=== PATIENT | female | born 1960 | race Two or more races ===

== ENCOUNTER → 2022-06-30 | Outpatient (CLI) | payer OTHER ==
[2022-06-30 13:21] LABS: Basophils # (auto) 0.1 10 ^3/uL (0-0.2); Basophils % (auto) 1.1 % (0.0-2.0); Eosinophils # (auto) 0.1 10 ^3/uL (0-0.8); Eosinophils % (auto) 2.3 % (0.0-7.0); Hematocrit 40.1 % (36.0-46.0); Hemoglobin 13.3 g/dL (12.2-16.2); Lymphocytes # (auto) 1.7 10 ^3/uL (0.4-5.4); Lymphocytes % (auto) 33.2 % (10.0-50.0); Mean Corpuscular Hemoglobin 30.1 pg (28.0-32.0); Mean Corpuscular Hgb Conc. 33.1 g/dL (32.0-36.0); Monocytes # (auto) 0.3 10 ^3/uL (0-1.3); Monocytes % (auto) 6.2 % (0.0-12.0); Neutrophils # (auto) 2.9 10 ^3/uL (1.6-8.6); Neutrophils % (auto) 57.2 % (37.0-80.0); Nucleated Red Blood Cells % 0.3 %; Red Blood Cells 4.41 10^6/uL (4.0-5.20); Red Cell Distribution Width 14.1 % (11.8-14.3); White Blood Cell 5.1 10^3/uL (4.4-10.8)
[2022-06-30 13:37] LABS: Urine Bacteria FEW /hpf (None Seen); Urine Blood Negative /uL (Negative); Urine Mucus FEW (None Seen); Urine Specific Gravity 1.015 (1.001-1.035); Urine WBC 6 /hpf (0 - 5)
[2022-06-30 14:03] LABS: Magnesium 2.4 mg/dL (1.6-2.6); Potassium 3.9 mmol/L (3.5-5.1)
[2022-06-30 14:04] LABS: Amphetamine Screen, Urine POSITIVE (NEGATIVE); Barbiturate Scree,Urine NEGATIVE (NEGATIVE); Benzodiazephine Screen, Urine NEGATIVE (NEGATIVE); Cannabinoid Screen, Urine NEGATIVE (NEGATIVE); Cocaine Screen, Urine NEGATIVE (NEGATIVE); Opiate Scree,Urine NEGATIVE (NEGATIVE); Phencyclidine Screen, Urine NEGATIVE (NEGATIVE)
[2022-06-30 14:12] LABS: BUN/Creatinine Ratio 9.2 (10.0-20.0); Bilirubin, Total 0.6 mg/dL (0.2-1.0); Calcium 9.1 mg/dL (8.5-10.1); Total Protein 7.5 g/dL (6.4-8.2); Uric Acid 4.8 mg/dL (2.6-6.0)
== END | disposition home or self-care (01) ==
LOC: LAB 12:59
PROVIDERS: ATTEND Family Medicine
DX: M54.2 Cervicalgia (principal); E66.9 Obesity, unspecified; M79.7 Fibromyalgia; E78.2 Mixed hyperlipidemia
CPT/HCPCS: 36415; 80053; 80061; 80307; 81001; 82306; 83036; 83540; 83735; 84425; 84443; 84550; 85025; 87086

== ENCOUNTER 2022-09-24 10:12 | Emergency (ER) | payer OTHER ==
[~2022-09-24] VITALS: Ht 162.6 cm; Wt 79.4 kg
[2022-09-24 10:48] VITALS: BP 157/86
[2022-09-24] MEDS ORDERED: KETOROLAC TROMETH 60MG/2ML VIAL IM ONE (11:00)
[2022-09-24] MEDS ORDERED: HYDR-4902 PO (12:09)
== END 2022-09-24 12:20 | disposition home or self-care (01) ==
LOC: ER 10:12
DX: M50.30 Other cervical disc degeneration, unspecified cervical region (principal); M54.12 Radiculopathy, cervical region; Z79.899 Other long term (current) drug therapy
CPT/HCPCS: 72040; 96372; 99283; J1885

== ENCOUNTER → 2022-12-27 | Outpatient (CLI) | payer OTHER ==
[~2022-12-27] MED LIST: HYDR-4902 PO
[2022-12-27 11:53] LABS: Basophils # (auto) 0.1 10 ^3/uL (0-0.2); Basophils % (auto) 1.2 % (0.0-2.0); Eosinophils # (auto) 0.2 10 ^3/uL (0-0.8); Eosinophils % (auto) 4.3 % (0.0-7.0); Hematocrit 38.4 % (36.0-46.0); Hemoglobin 13.1 g/dL (12.2-16.2); Lymphocytes # (auto) 1.5 10 ^3/uL (0.4-5.4); Lymphocytes % (auto) 31.9 % (10.0-50.0); Mean Corpuscular Hemoglobin 31.7 pg (28.0-32.0); Mean Corpuscular Hgb Conc. 34.1 g/dL (32.0-36.0); Mean Corpuscular Volume 93.1 fL (80.0-100.0); Monocytes # (auto) 0.3 10 ^3/uL (0-1.3); Monocytes % (auto) 5.7 % (0.0-12.0); Neutrophils # (auto) 2.6 10 ^3/uL (1.6-8.6); Neutrophils % (auto) 56.9 % (37.0-80.0); Red Blood Cells 4.13 10^6/uL (4.0-5.20); Red Cell Distribution Width 13.4 % (11.8-14.3); White Blood Cell 4.6 10^3/uL (4.4-10.8)
[2022-12-27 12:13] LABS: Urine Bacteria FEW /hpf (None Seen); Urine Blood Negative /uL (Negative); Urine Clarity Clear (Clear); Urine Color Yellow (Yellow); Urine Mucus FEW (None Seen); Urine Protein, UAD Negative (Negative); Urine Specific Gravity 1.017 (1.001-1.035); Urine Urobilinogen Normal (Negative); Urine WBC 10 /hpf (0 - 5); Urine pH 5.5 (5.0-8.0)
[2022-12-27 12:49] LABS: % Iron Saturation 54.8 % (15-50); Alanine Aminotransferase 23 U/L (7-40); Albumin 4.5 g/dL (3.2-4.8); Alkaline Phosphatase 94 U/L (46-116); Anion Gap 6 (5-15); Aspartate Aminotransferase 20 U/L (13-40); BUN/Creatinine Ratio 9.3 (10.0-20.0); Blood Urea Nitrogen 8 mg/dL (9-23); Calcium 9.6 mg/dL (8.5-10.1); Carbon Dioxide 29 mmol/L (20-30); Chloride 103 mmol/L (98-107); Cholesterol 289 mg/dL (< 200); Glucose 99 mg/dL (74-106); HDL Cholesterol 56 mg/dL (40-59); LDL Cholesterol 205 mg/dL (< 100); Potassium 4.5 mmol/L (3.5-5.1); Sodium 138 mmol/L (136-145); Triglycerides 195 mg/dL (< 150)
[2022-12-27 12:50] LABS: Bilirubin, Total 0.9 mg/dL (0.2-1.0); Total Protein 7.1 g/dL (5.7-8.2)
[2022-12-27 12:51] LABS: Free T3 2.69 pg/mL (2.3-4.2); T3 Total 1.05 ng/mL (0.60-1.81)
[2022-12-27 12:52] LABS: Follicle Stimulating Hormone 87.47 IU/L (SEE BELOW); Prolactin 6.35 ng/mL (2.8-29.2)
[2022-12-27 12:53] LABS: Free T4 (Free Thyroxine) 1.15 ng/dL (0.89-1.76)
[2022-12-27 13:12] LABS: Uric Acid 5.3 mg/dL (3.1-7.8)
== END | disposition home or self-care (01) ==
LOC: LAB 11:28
PROVIDERS: ATTEND Family Medicine
DX: Z00.00 Encounter for general adult medical examination without abnormal findings (principal); E78.2 Mixed hyperlipidemia; E66.9 Obesity, unspecified; G47.00 Insomnia, unspecified
CPT/HCPCS: 36415; 80053; 80061; 81001; 82670; 83001; 83036; 83540; 83550; 84146; 84439; 84443; 84480; 84481; 84550; 85025

== ENCOUNTER 2023-01-17 15:34 | Emergency (ER) | payer OTHER ==
[~2023-01-17] VITALS: Ht 160 cm; Wt 84.2 kg
[2023-01-17] MEDS ORDERED: CYCL-839 PO (16:41)
[2023-01-17] MEDS ORDERED: HYDR-4902 PO (16:41)
[2023-01-17] MEDS ORDERED: MORPHINE SULFATE INJ 2 MG/ml SYRG IM ONE (16:45)
[2023-01-17] MEDS ORDERED: DexAMETHasone SOD PHOS 10MG/1ML VIAL INJ IM ONE (16:45)
[2023-01-17 16:56] VITALS: TEMP 98.5; O2SAT 95
[2023-01-17 17:16] VITALS: BP 132/98; PULSE 87; RESP 17
== END 2023-01-17 17:16 | disposition home or self-care (01) ==
LOC: ER 15:34
DX: G89.29 Other chronic pain (principal); M54.59 Other low back pain; M54.2 Cervicalgia; M62.838 Other muscle spasm; Z79.1 Long term (current) use of non-steroidal anti-inflammatories (NSAID)
CPT/HCPCS: 96372; 99284; J1100; J2270

== ENCOUNTER → 2023-03-11 | Outpatient (CLI) | payer OTHER ==
[~2023-03-11] MED LIST changes: +CYCL-839 PO
[2023-03-11 15:41] LABS: Basophils # (auto) 0.1 10 ^3/uL (0-0.2); Basophils % (auto) 0.8 % (0.0-2.0); Eosinophils # (auto) 0.2 10 ^3/uL (0-0.8); Eosinophils % (auto) 3.2 % (0.0-7.0); Hematocrit 37.3 % (36.0-46.0); Hemoglobin 12.3 g/dL (12.2-16.2); Lymphocytes # (auto) 1.9 10 ^3/uL (0.4-5.4); Lymphocytes % (auto) 26.5 % (10.0-50.0); Mean Corpuscular Hemoglobin 30.7 pg (28.0-32.0); Mean Corpuscular Hgb Conc. 33.1 g/dL (32.0-36.0); Mean Corpuscular Volume 92.8 fL (80.0-100.0); Monocytes # (auto) 0.4 10 ^3/uL (0-1.3); Monocytes % (auto) 5.1 % (0.0-12.0); Neutrophils # (auto) 4.5 10 ^3/uL (1.6-8.6); Neutrophils % (auto) 64.4 % (37.0-80.0); Nucleated Red Blood Cells % 0.1 %; Red Blood Cells 4.02 10^6/uL (4.0-5.20)
[2023-03-11 17:12] LABS: Alanine Aminotransferase 17 U/L (7-40); Albumin 4.9 g/dL (3.2-4.8); Alkaline Phosphatase 91 U/L (46-116); Anion Gap 7 (5-15); Aspartate Aminotransferase 12 U/L (13-40); Bilirubin, Total 0.3 mg/dL (0.2-1.0); Blood Urea Nitrogen 13 mg/dL (9-23); Calcium 9.8 mg/dL (8.7-10.4); Carbon Dioxide 26 mmol/L (20-30); Chloride 107 mmol/L (98-107); Glucose 103 mg/dL (74-106); Potassium 4.9 mmol/L (3.5-5.1); Sodium 140 mmol/L (136-145); Total Protein 7.4 g/dL (5.7-8.2)
== END | disposition home or self-care (01) ==
LOC: LAB 15:02
PROVIDERS: ATTEND Family Medicine
DX: E78.2 Mixed hyperlipidemia (principal); M79.7 Fibromyalgia; N17.9 Acute kidney failure, unspecified; K25.7 Chronic gastric ulcer without hemorrhage or perforation
CPT/HCPCS: 36415; 80053; 85025

== ENCOUNTER → 2024-03-27 | Outpatient (CLI) | payer MEDICARE ==
[2024-03-27 10:52] LABS: Urine Bacteria None Seen /hpf (None Seen)
[2024-03-27 11:19] LABS: Urine Blood Negative /uL (Negative); Urine Clarity Clear (Clear); Urine Color Dark-Brown (Yellow); Urine Hyaline Cast FEW /lpf (0 - 2); Urine Mucus FEW (None Seen); Urine Protein, UAD TRACE (Negative); Urine Specific Gravity 1.018 (1.001-1.035); Urine Squamous Epithelial Cell FEW /hpf (<5); Urine Urobilinogen 6 mg/dL (Negative); Urine WBC 4 /hpf (0 - 5); Urine pH 5.5 (5.0-9.0)
[2024-03-27 11:34] LABS: Basophils # (auto) 0 10 ^3/uL (0-0.2); Basophils % (auto) 0.6 % (0.0-2.0); Eosinophils # (auto) 0.1 10 ^3/uL (0-0.8); Eosinophils % (auto) 2.3 % (0.0-7.0); Hematocrit 42.4 % (36.0-46.0); Hemoglobin 14.3 g/dL (12.2-16.2); Lymphocytes # (auto) 1.9 10 ^3/uL (0.4-5.4); Lymphocytes % (auto) 32.2 % (10.0-50.0); Mean Corpuscular Hemoglobin 31.5 pg (28.0-32.0); Mean Corpuscular Hgb Conc. 33.6 g/dL (32.0-36.0); Mean Corpuscular Volume 93.7 fL (80.0-100.0); Monocytes # (auto) 0.3 10 ^3/uL (0-1.3); Neutrophils # (auto) 3.5 10 ^3/uL (1.6-8.6); Neutrophils % (auto) 59.9 % (37.0-80.0); Platelet Count (auto) 262 10^3/uL (140-450); Red Blood Cells 4.53 10^6/uL (4.0-5.20); Red Cell Distribution Width 13.4 % (11.8-14.3); White Blood Cell 5.9 10^3/uL (4.4-10.8)
[2024-03-27 11:38] LABS: % Iron Saturation 38.4 % (15-50)
[2024-03-27 11:41] LABS: Albumin 4.6 g/dL (3.2-4.8); Alkaline Phosphatase 81 U/L (46-116); Anion Gap 7 (5-15); BUN/Creatinine Ratio 9.4 (10.0-20.0); Bilirubin, Total 0.6 mg/dL (0.2-1.0); Carbon Dioxide 30 mmol/L (20-31); Chloride 104 mmol/L (98-107); Glucose 88 mg/dL (74-106); HDL Cholesterol 59 mg/dL (40-59); Potassium 4.2 mmol/L (3.5-5.1); Sodium 141 mmol/L (136-145); T3 Total 1.05 ng/mL (0.60-1.81); Total Protein 7.1 g/dL (5.7-8.2); Triglycerides 148 mg/dL (< 150)
[2024-03-27 11:42] LABS: Free T3 3.08 pg/mL (2.3-4.2)
[2024-03-27 11:44] LABS: Free T4 (Free Thyroxine) 1.04 ng/dL (0.89-1.76)
[2024-03-27 11:54] LABS: Alanine Aminotransferase < 9 U/L (7-40); Aspartate Aminotransferase 12 U/L (13-40); Blood Urea Nitrogen 8 mg/dL (9-23); Calcium 10.5 mg/dL (8.7-10.4); Cholesterol 261 mg/dL (< 200); LDL Cholesterol 192 mg/dL (< 100)
[2024-03-27 12:19] LABS: Uric Acid 3.2 mg/dL (3.1-7.8)
== END | disposition home or self-care (01) ==
LOC: LAB 10:27
PROVIDERS: ATTEND Family Medicine
DX: M79.7 Fibromyalgia (principal); E78.2 Mixed hyperlipidemia; E66.09 Other obesity due to excess calories; R94.4 Abnormal results of kidney function studies
CPT/HCPCS: 36415; 80053; 80061; 81001; 82306; 82607; 83036; 83540; 83550; 84403; 84439; 84443; 84480; 84481; 84550; 85025; 87086

== ENCOUNTER → 2024-04-16 | Outpatient (CLI) | payer MEDICARE | END | disposition home or self-care (01) | LOC: LAB 15:58 | PROVIDERS: ATTEND Family Medicine | DX: M79.7 Fibromyalgia (principal); E66.09 Other obesity due to excess calories; E78.2 Mixed hyperlipidemia; R94.4 Abnormal results of kidney function studies | CPT/HCPCS: 82270 ==

== ENCOUNTER 2024-09-12 10:46 | Outpatient (CLI) | payer OTHER ==
[2024-09-12 11:30] LABS: Basophils # (auto) 0 10 ^3/uL (0-0.2); Basophils % (auto) 0.5 % (0.0-2.0); Eosinophils # (auto) 0.1 10 ^3/uL (0-0.8); Eosinophils % (auto) 2.2 % (0.0-7.0); Hematocrit 39.8 % (36.0-46.0); Hemoglobin 13.4 g/dL (12.2-16.2); Lymphocytes # (auto) 1.5 10 ^3/uL (0.4-5.4); Mean Corpuscular Hemoglobin 30.5 pg (28.0-32.0); Mean Corpuscular Hgb Conc. 33.7 g/dL (32.0-36.0); Mean Corpuscular Volume 90.3 fL (80.0-100.0); Monocytes # (auto) 0.3 10 ^3/uL (0-1.3); Monocytes % (auto) 6.4 % (0.0-12.0); Neutrophils # (auto) 2.9 10 ^3/uL (1.6-8.6); Neutrophils % (auto) 59.9 % (37.0-80.0); Platelet Count (auto) 262 10^3/uL (140-450); Red Blood Cells 4.41 10^6/uL (4.0-5.20); Red Cell Distribution Width 13.1 % (11.8-14.3); White Blood Cell 4.9 10^3/uL (4.4-10.8)
[2024-09-12 11:37] LABS: Albumin 4.8 g/dL (3.2-4.8); Alkaline Phosphatase 95 U/L (46-116); Anion Gap 9 (5-15); Aspartate Aminotransferase 16 U/L (<34); BUN/Creatinine Ratio 8.3 (10.0-20.0); Carbon Dioxide 28 mmol/L (20-31); Chloride 106 mmol/L (98-107); Cholesterol 196 mg/dL (< 200); Glucose 87 mg/dL (74-106); Sodium 143 mmol/L (136-145); Triglycerides 54 mg/dL (< 150)
[2024-09-12 11:38] LABS: Alanine Aminotransferase < 9 U/L (7-40); Bilirubin, Total 0.8 mg/dL (0.2-1.0); Blood Urea Nitrogen 7 mg/dL (9-23); Calcium 10.7 mg/dL (8.7-10.4); HDL Cholesterol 66 mg/dL (40-59); LDL Cholesterol 115 mg/dL (< 100); Potassium 5.2 mmol/L (3.5-5.1)
== END 2024-09-12 17:00 | disposition home or self-care (01) ==
LOC: LAB 10:46
PROVIDERS: ATTEND Family Medicine
DX: E66.09 Other obesity due to excess calories (principal); R94.4 Abnormal results of kidney function studies; Z68.30 Body mass index [BMI] 30.0-30.9, adult; Z68.23 Body mass index [BMI] 23.0-23.9, adult
CPT/HCPCS: 36415; 80053; 80061; 83036; 85025